=== PATIENT | male | born 1990 | race Caucasian/White ===

== ENCOUNTER 2016-04-21 12:07 | Emergency (ER) | payer OTHER ==
[2016-04-21 12:12] VITALS: BP 126/81; PULSE 92; TEMP 98; BMI 34.9
--- NOTE | 2016-04-21 12:34 | PDOC ---
History of Present Illness <Jairo Eugene - Last Filed: 04/21/16 12:31> - General History Source: Patient Exam Limitations: No Limitations - History of Present Illness Initial Comments: 04/21/16 12:39 Patient is a 25 year old male with no pmhx who presents to the ED with lightheadedness for a couple of weeks. Patient notes that he has been experiencing lightheadedness and SOB. Patient notes that when he walks up the stairs he reports labored breathing and lightheadedness. He also reports decreased PO intake. He denies any change in mood, sleeping schedule, no increased stress. He denies use of supplements or vitamins. <Melany Rivers - Last Filed: 04/21/16 12:40> - General Chief Complaint: Lightheaded Stated Complaint: SOB, LIGHTHEADED Time Seen by Provider: 04/21/16 12:23 Past History - Past Medical History Other medical history: NONE - Psycho/Social/Smoking Cessation Hx Anxiety: No Suicidal Ideation: No Smoking History: Never smoked Information on smoking cessation initiated: No Hx Alcohol Use: No Drug/Substance Use Hx: No Substance Use Type: None <Jairo Eugene - Last Filed: 04/21/16 12:31> <Melany Rivers - Last Filed: 04/21/16 12:40> - Past Medical History Allergies/Adverse Reactions: Allergies Allergy/AdvReac Type Severity Reaction Status Date / Time No Known Allergies Allergy Verified 04/21/16 12:09 Home Medications: Ambulatory Orders NK [No Known Home Medication] 10/08/15 Review of Systems - Review of Systems Able to Perform ROS?: Yes Comments:: 04/21/16 12:40 General: Absent: fever, chills Respiratory: +SOB Absent: cough GI: Absent: nausea, vomiting, diarrhea, constipation, abdominal pain : Absent: dysuria Neuro: +lightheadedness Absent: LOC, headache Psych: Absent: mood changes <Melany Rivers - Last Filed: 04/21/16 12:40> *Physical Exam - Vital Signs Last Vital Signs Temp Pulse Resp BP Pulse Ox 98.0 F 92 H 18 126/81 100 04/21/16 12:09 04/21/16 12:09 04/21/16 12:09 04/21/16 12:09 04/21/16 12:09 - Physical Exam General Appearance: Yes: Nourished, Appropriately Dressed. No: Apparent Distress HEENT: positive: EOMI, EDISON, Normal ENT Inspection Neck: positive: Supple. negative: Tender Respiratory/Chest: positive: Lungs Clear, Normal Breath Sounds. negative: Chest Tender, Respiratory Distress Cardiovascular: positive: Regular Rhythm, Regular Rate. negative: Murmur, Gallop/S3 Gastrointestinal/Abdominal: positive: Normal Bowel Sounds, Soft. negative: Tender Musculoskeletal: positive: Normal Inspection. negative: CVA Tenderness Extremity: positive: Normal Capillary Refill, Normal Inspection. negative: Pedal Edema, Other Neurologic: positive: sec reporting consultant II-XII NML intact, Fully Oriented, Alert, Normal Mood/ Affect, Normal Response, Motor Strength 5/5 <Jairo Eugene - Last Filed: 04/21/16 12:31> - Vital Signs Last Vital Signs Temp Pulse Resp BP Pulse Ox 98.0 F 92 H 18 126/81 100 04/21/16 12:09 04/21/16 12:09 04/21/16 12:09 04/21/16 12:09 04/21/16 12:09 <Melany Rivers - Last Filed: 04/21/16 12:40> *DC/Admit/Observation/Transfer <Jairo Eugene - Last Filed: 04/21/16 12:31> - Attestations Scribe Attestion: 04/21/16 12:40 Documentation prepared by ARMANDO Blanco, acting as medical technologist microbiology for Jairo Eugene MD/DO. <Melany Rivers - Last Filed: 04/21/16 12:40> Diagnosis at time of Disposition: Weakness - Discharge Dispostion Disposition: HOME Condition at time of disposition: Good - Referrals Referrals: Aramis Araiza [Primary Care Provider] - Call tomorrow - Patient Instructions Additional Instructions: THOUGH YOUR ISSUE DOES NOT SEEM TO BE LIFE-THREATENING, YOU SHOULD FOLLOW UP WITH YOUR PCP, PLEASE CALL YOUR DOCTOR TODAY FOR APPOINTMENT YOUR PHYSICAL EXAM DID NOT YIELD ANY ABNORMALITY TO WARRANT AN EMERGENCY INTERVENTION OR WORK UP
== END 2016-04-21 12:45 | disposition home or self-care (01) ==
LOC: JER 12:07
DX: R53.1 Weakness (principal)
CPT/HCPCS: 99282-25

== ENCOUNTER 2018-05-07 15:13 | Emergency (ER) | payer OTHER ==
[2018-05-07 15:30] VITALS: BMI 36.9
[2018-05-07] MEDS ORDERED: ADENOSINE 6 MG/2 ML VIAL IVPUSH ONE (15:46)
--- NOTE | 2018-05-07 15:59 | PDOC ---
History of Present Illness - General Chief Complaint: Irregular Heart Beat Stated Complaint: CHEST PAIN Time Seen by Provider: 05/07/18 15:37 History Source: Patient Exam Limitations: No Limitations - History of Present Illness Initial Comments: 05/07/18 15:54 27 yo M no significant medical history p/w sudden onset of fast heart rate. Patient was sitting in a royal shop while he suddenly felt palpitations and fast heart rate. He endorses daily random occurrence of tachycardia with high blood pressure, shortness of breath, but not associated with exertion. Denies any cardiac history in 1st degree relatives, chest pain, anxiety, abd pain, headache, dizziness. 05/07/18 17:14 Pt refused xanax, labs remarkable for elevated AST and ALT. Sent UA and urine tox. 05/07/18 18:22 All labs came back normal. Will discharge the patient once IVF finishes. Pt appear anxious and refuses anxiolytics. Past History - Past Medical History Allergies/Adverse Reactions: Allergies Allergy/AdvReac Type Severity Reaction Status Date / Time No Known Allergies Allergy Verified 05/07/18 15:27 Home Medications: Ambulatory Orders NK [No Known Home Medication] 10/08/15 COPD: No - Suicide/Smoking/Psychosocial Hx Smoking History: Never smoked Hx Alcohol Use: No Drug/Substance Use Hx: No Substance Use Type: None Review of Systems - Review of Systems Able to Perform ROS?: Yes Constitutional: No: Chills, Fever Respiratory: Yes: Shortness of Breath. No: Cough Cardiac (ROS): Yes: Palpitations, Chest Tightness. No: Chest Pain ABD/GI: No: Vomiting Neurological: No: Headache, Numbness *Physical Exam - Vital Signs Last Vital Signs Temp Pulse Resp BP Pulse Ox 98.2 F 130 H 22 H 121/90 05/07/18 15:27 05/07/18 15:27 05/07/18 15:27 05/07/18 15:27 - Physical Exam General Appearance: No: Apparent Distress Respiratory/Chest: positive: Normal Breath Sounds Cardiovascular: positive: Regular Rhythm, Regular Rate, S1, S2, Tachycardia. negative: Murmur Gastrointestinal/Abdominal: positive: Normal Bowel Sounds, Soft. negative: Tender Neurologic: positive: Fully Oriented, Alert Moderate Sedation - Procedure Monitoring Vital Signs: Procedure Monitoring Vital Signs Temperature 98.2 F 05/07/18 15:27 Pulse Rate 130 H 05/07/18 15:27 Respiratory Rate 22 H 05/07/18 15:27 Blood Pressure 121/90 05/07/18 15:27 O2 Sat by Pulse Oximetry (%) ED Treatment Course - LABORATORY CBC & Chemistry Diagram: 05/07/18 16:00 05/07/18 16:00 *DC/Admit/Observation/Transfer Diagnosis at time of Disposition: Sinus tachycardia - Discharge Dispostion Disposition: HOME Condition at time of disposition: Stable Decision to Admit order: No - Referrals Referrals: Jairo Bobo MD [Staff Physician] - Salomón Ruth MD [Staff Physician] - - Patient Instructions Printed Discharge Instructions: DI for Tachycardia Additional Instructions: You were seen and evaluated in [facility] Emergency Room today for fast heart rate aka tachycardia. All lab works including cardiac enzyme, chest x-ray, d-dimer are negative. 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 Bobo, see referral) once your insurance is activated. - Post Discharge Activity
[2018-05-07 16:36] LABS: BASO % 0.2 % (0-2.0); EOS % 0.5 % (0-4.5); HEMATOCRIT 47.6 % (35.4-49); HEMOGLOBIN 16.3 GM/dL (11.7-16.9); LYMPH % 11.8 % (8-40); MCH 31.1 pg (25.7-33.7); MCHC 34.2 g/dl (32.0-35.9); MEAN CELL VOLUME 90.8 fl (80-96); MEAN PLT VOLUME 7.3 fl (7.5-11.1); MONO % 7.3 % (3.8-10.2); NEUT % 80.2 % (42.8-82.8); PLATELET COUNT 283 K/MM3 (134-434); RBC 5.24 M/mm3 (4.00-5.60); RDW 12.9 % (11.9-15.9); WHITE BLOOD COUNT 9.9 K/mm3 (4.0-10.0)
--- NOTE | 2018-05-07 16:41 | PDOC ---
Attending Attestation - HPI HPI: 05/07/18 17:13 The patient is a 27 year old male with no past medical history here today for evaluation of shortness of breath. The patient reports that he has episodes of shortness of breath, tachycardia, and palpitations everyday recently. He reports no pain and states that his episodes are not affected by exertion. Patient denies headache, lightheadedness. Denies fever, chills. Denies chest pain. Denies nausea, vomiting, diarrhea, abdominal pain. Allergies: NKA PCP: Wisam Hargrove - Medical Decision Making 05/07/18 17:13 Documentation prepared by AMRANDO Carter, acting as medical facilities section director for Elissa Bender MD. <Chirag Rao - Last Filed: 05/07/18 17:13> - Physicial Exam PE: GENERAL: The patient is in no acute distress. HEAD: Normal with no signs of trauma. EYES: PERRLA, EOMI, sclera anicteric, conjunctiva clear. ENT: Ears normal, nares patent, oropharynx clear without exudates. Moist mucous membranes. NECK: Normal range of motion, supple without lymphadenopathy, JVD, or masses. LUNGS: Breath sounds equal, clear to auscultation bilaterally. No wheezes, and no crackles. HEART: +Tachycardic. Regular rhythm, normal S1 and S2 without murmur, rub or gallop. ABDOMEN: Soft, nontender, normoactive bowel sounds. No guarding, no rebound. No masses palpable. EXTREMITIES: Normal range of motion, no edema. No clubbing or cyanosis. No erythema, or tenderness. NEUROLOGICAL: Cranial nerves II through XII grossly intact. Normal speech. No focal neurological deficits. MUSCULOSKELETAL: Back non-tender to palpation, no CVA tenderness SKIN: Warm, Dry, normal turgor, no rashes or lesions noted. 05/07/18 18:03 - Medical Decision Making EXAM#: TYPE/EXAM: RESULT: [id number] RAD/CHEST X-RAY PORTABLE* Chest: Cough. Impression: No acute chest pathology. Reported By: Chris King MD 05/07/18 19:10 Documentation prepared by ARMANDO Reyna, acting as medical facilities section director for Elissa Bender MD. 05/07/18 20:05 <Nubia Urias - Last Filed: 05/07/18 20:05> - Resident Resident Name: Jairo Bazan - ED Attending Attestation I have performed the following: I have examined & evaluated the patient, The case was reviewed & discussed with the resident, I agree w/resident's findings & plan, Exceptions are as noted - Medical Decision Making 05/07/18 16:44 EKG - ST rate of 126 bpm, axis nml, intervals nml, Right axis deviation, no st elevation or depression 05/07/18 18:17 Mr. 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
[2018-05-07] MEDS ORDERED: SODIUM CHLORIDE 1,000 ML IV STA ×2 (16:45→17:36)
[2018-05-07] MEDS ORDERED: ALPRAZolam 0.25 MG TABLET PO ONE (16:45)
[2018-05-07 17:00] LABS: INR 1.13 (0.83-1.09); PROTHROMBIN TIME (PATIENT) 13.3 SEC (9.7-13.0)
[2018-05-07 17:03] LABS: ACTIVATED PTT 24.5 SECONDS (25.2-36.5)
[2018-05-07] MEDS ORDERED: ALPRAZolam 0.25 MG TABLET ONE (17:03)
[2018-05-07 17:09] LABS: ALBUMIN 4.4 g/dl (3.4-5.0); ALK PHOS 87 U/L (45-117); ANION GAP 8 MMOL/L (8-16); BILIRUBIN,TOTAL 0.6 mg/dL (0.2-1); BLOOD UREA NITROGEN 10 mg/dL (7-18); CALCIUM 9.4 mg/dL (8.5-10.1); CHLORIDE 104 mmol/L (98-107); CO2 24 mmol/L (21-32); CREATININE 0.8 mg/dL (0.55-1.3); GLUCOSE,RANDOM 103 mg/dL (74-106); MAGNESIUM 2.1 mg/dL (1.8-2.4); PHOSPHOROUS 3.3 mg/dL (2.5-4.9); SGOT/AST 58 U/L (15-37); SGPT/ALT 124 U/L (13-61); SODIUM 136 mmol/L (136-145); TOT PROT 7.9 g/dl (6.4-8.2)
[2018-05-07 17:51] LABS: URINE APPEARANCE CLEAR; URINE BILIRUBIN NEGATIVE (<2.0 mg/dL); URINE COLOR YELLOW; URINE GLUCOSE (UA) NEGATIVE (NEGATIVE); URINE KETONE TRACE (NEGATIVE); URINE LEUK ESTERASE NEGATIVE (NEGATIVE); URINE NITRITE NEGATIVE (NEGATIVE); URINE PROTEIN NEGATIVE (NEGATIVE); URINE UROBILINOGEN NEGATIVE mg/dL (0.2-1.0)
[2018-05-07 18:00] LABS: COCAINE, UR NEGATIVE ng/ml (CUTOFF=300); METHADONE, UR NEGATIVE ng/ml (CUTOFF=300); OPIATES, URI NEGATIVE ng/ml (CUTOFF=300); PHENCYCLIDINE,URINE NEGATIVE ng/ml (CUTOFF=25); URINE AMPHETAMINES NEGATIVE ng/ml (CUTOFF=500); URINE BARBITURATES NEGATIVE ng/ml (CUTOFF=200); URINE BENZODIAZEPINES NEGATIVE ng/ml (CUTOFF=200)
[2018-05-07 18:50] VITALS: BP 138/78; PULSE 98
[2018-05-07 19:17] VITALS: TEMP 98.4
--- NOTE | 2018-05-08 13:16 | EKG ---
Test Reason : Blood Pressure : / mmHG Vent. Rate : 126 BPM Atrial Rate : 126 BPM P-R Int : 150 ms QRS Dur : 090 ms QT Int : 304 ms P-R-T Axes : 036 108 002 degrees QTc Int : 440 ms SINUS TACHYCARDIA RIGHTWARD AXIS CANNOT RULE OUT ANTERIOR INFARCT , AGE UNDETERMINED ABNORMAL ECG NO PREVIOUS ECGS AVAILABLE Confirmed by MD JAY, RUFUS ([id number]) on 05/08/2018 1:15:46 PM Referred By: Confirmed By:RUFUS THOMPSON MD
== END 2018-05-07 19:18 | disposition home or self-care (01) ==
LOC: JER 15:13
PROC: 3E0337Z Introduction of Electrolytic and Water Balance Substance into Peripheral Vein, Percutaneous Approach (ICD-10-PCS; principal; 2018-05-07)
DX: R00.0 Tachycardia, unspecified (principal)
CPT/HCPCS: 36415; 71045-TC-FY; 80053; 80307; 81003; 82550; 82553; 83735; 84100; 84439; 84443; 84484; 85025; 85379; 85610; 85730; 93005; 93010; 96360; 96361; 99285-25; J7030

== ENCOUNTER 2018-05-08 21:29 | Emergency (ER) | payer OTHER ==
[2018-05-08 21:43] VITALS: TEMP 97.9; BMI 36.8
--- NOTE | 2018-05-08 22:32 | PDOC ---
History of Present Illness - General Chief Complaint: Shortness of Breath Stated Complaint: SHORT BREATH Time Seen by Provider: 05/08/18 21:59 History Source: Patient Exam Limitations: No Limitations - History of Present Illness Initial Comments: 05/08/18 22:26 Best Contact: PCP: None Pmhx: Meningitis @ 13 yo Pshx: 2012: Left shoulder arthroscopy Allergies:NKDA FH: Mother HTN (52yo); Unk father Social Hx: Cigarettes/ 0 Alcohol/ Social Drugs/denies 27-year-old male presents to the emergency department complaining of tachycardia with palpitations. Patient states although yesterday was not the first incident experiencing these symptoms, he felt short of breath while sitting in the royal's chair at approximately 1400 hrs. patient states the shortness of breath came on suddenly with tachycardia, shakes and appeared pale. EMS was activated and he was brought to the emergency department. Chest x- ray, blood work, UA, urine tox and IV fluid while in the emergency department. Everything appeared negative. Patient was discharged home felt better minimally. At approximately 2100 hrs. this evening while sitting on the couch talking to family members, patient states he walked from the living room to another wound to have a private conversation with his aunt via his cell phone, he felt shortness of breath and tachycardia again. Patient endorses he was not anxious, did not have an argument, was not upset. Patient had family members over along with some children running around that did not upset him. Patient furthermore says when he ambulates, he feels shortness of breath. When he speaks in full sentences sometimes he has to catch his breath along with getting up midway through his sleep to catch his breath. Patient states approximately 1-1/2 years ago, he felt his first episode of shortness of breath. Patient contributes it to his weight gain. Approximately 1- 1/2 years ago, patient weighed approximately 2:15 2-20 pounds. He started losing weight and felt a bit better/in the range of the 200 pounds. Since the end of last year, patient has been gaining weight and he is at approximately 250 pounds at this point. Patient states he has never seen a solids control technician or had any follow-up after experiencing these episodes. At this time, patient denies fever, chills, nausea/vomiting, dizziness, headache , lightheadedness, facial pains, rhinorrhea, nasal congestion, earache, sore throat, neck stiffness/pain, back pains, chest pain, abdominal pains, flank pains, urinary symptoms, extremity numbness or tingling sensation, weakness. Past History - Past Medical History Allergies/Adverse Reactions: Allergies Allergy/AdvReac Type Severity Reaction Status Date / Time No Known Allergies Allergy Verified 05/07/18 15:27 Home Medications: Ambulatory Orders NK [No Known Home Medication] 10/08/15 COPD: No - Suicide/Smoking/Psychosocial Hx Smoking History: Never smoked Hx Alcohol Use: No Drug/Substance Use Hx: No Substance Use Type: None Review of Systems - Review of Systems Able to Perform ROS?: Yes Comments:: 05/08/18 22:40 CONSTITUTIONAL: Absent: fever, chills, diaphoresis, generalized weakness, malaise, loss of appetite HEENT: Absent: rhinorrhea, nasal congestion, throat pain, throat swelling, difficulty swallowing, mouth swelling, ear pain, eye pain, visual Changes CARDIOVASCULAR: Absent: chest pain, loss of consciousness, palpitations, irregular heart rate, peripheral edema RESPIRATORY: +palpitations, sob Absent: cough, dyspnea with exertion, orthopnea, wheezing, stridor, hemoptysis GASTROINTESTINAL: Absent: abdominal pain, abdominal distension, nausea, vomiting, diarrhea, constipation, melena, hematochezia GENITOURINARY: Absent: dysuria, frequency, urgency, hesitancy, hematuria, flank pain, genital pain MUSCULOSKELETAL: Absent: myalgia, arthralgia, joint swelling SKIN: Absent: rash, itching, pallor HEMATOLOGIC/IMMUNOLOGIC: Absent: easy bleeding, easy bruising, lymphadenopathy, frequent infections ENDOCRINE: Absent: unexplained weight gain, unexplained weight loss, heat intolerance, cold intolerance NEUROLOGIC: Absent: headache, focal weakness or paresthesias, dizziness, unsteady gait, seizure, mental status changes, bladder or bowel incontinence PSYCHIATRIC: Absent: anxiety, depression, suicidal or homicidal ideation, hallucinations. Is the patient limited Maltese proficient: No *Physical Exam - Vital Signs Last Vital Signs Temp Pulse Resp BP Pulse Ox 97.9 F 99 H 20 159/97 99 05/08/18 21:36 05/08/18 21:36 05/08/18 21:36 05/08/18 21:36 05/08/18 21:36 - Physical Exam Comments: 05/08/18 22:40 GENERAL: Well developed, well nourished. Awake and alert. No acute distress. HEENT: Normocephalic, atraumatic. PERRLA, EOMI. No conjunctival pallor. Sclera are non- icteric. Moist mucous membranes. Oropharynx is clear. NECK: Supple. Full ROM. No JVD. Carotid pulses 2+ and symmetric, without bruits. No thyromegaly. No lymphadenopathy. CARDIOVASCULAR: Regular rate and rhythm. No murmurs, rubs, or gallops. Distal pulses are 2+ and symmetric. PULMONARY: No evidence of respiratory distress. Lungs clear to auscultation bilaterally. No wheezing, rales or rhonchi. ABDOMINAL: Soft. Non-tender. Non-distended. No rebound or guarding. No organomegaly. Normoactive bowel sounds. MUSCULOSKELETAL Normal range of motion at all joints. No bony deformities or tenderness. No CVA tenderness. EXTREMITIES: No cyanosis. No clubbing. No edema. No calf tenderness. SKIN: Warm and dry. Normal capillary refill. No rashes. No jaundice. NEUROLOGICAL: Alert, awake, appropriate. Cranial nerves 2-12 intact. No deficits to light touch and temperature in face, upper extremities and lower extremities. No motor deficits in the in face, upper extremities and lower extremities. Normoreflexic in the upper and lower extremities. Normal speech. Toes are down- going bilaterally. Gait is normal without ataxia. PSYCHIATRIC: Cooperative. Good eye contact. Appropriate mood and affect. Moderate Sedation - Procedure Monitoring Vital Signs: Procedure Monitoring Vital Signs Temperature 97.9 F 05/08/18 21:36 Pulse Rate 99 H 05/08/18 21:36 Respiratory Rate 20 05/08/18 21:36 Blood Pressure 159/97 05/08/18 21:36 O2 Sat by Pulse Oximetry (%) 99 05/08/18 21:36 ED Treatment Course - LABORATORY CBC & Chemistry Diagram: 05/08/18 23:06 05/08/18 23:06 - RADIOLOGY Radiograph Interpretation: 05/09/18 02:20 CTA: No evidence of pulmonary embolus, thoracic aortic aneurysm or dissection. Bovine aortic arch clear lungs *DC/Admit/Observation/Transfer Diagnosis at time of Disposition: SOBOE (shortness of breath on exertion), Tachycardia, Anxiety - Discharge Dispostion Disposition: HOME Condition at time of disposition: Stable Decision to Admit order: No - Referrals Referrals: Dimas Norman MD [Staff Physician] - Fabio Naylor MD, MD [Staff Physician] - Baldemar Hargrove MD [Staff Physician] - - Patient Instructions Printed Discharge Instructions: DI for Shortness of Breath, DI for Tachycardia , DI for Anxiety -- Adult Additional Instructions: As per hour in depth conversation in the emergency department, it is very important that you follow up with the solids control technician and a shop router on Thursday and Thursday. You need to take deep breaths Increase by mouth shortness of breath while exerting yourself, STOP. And relax You had a CTA of your chest with contrast this evening. The exam does not show a blood clot in your lung/thoracic aortic aneurysm Return back to the ER for severe/persistent or worsening symptoms - Post Discharge Activity Progress Note - Progress Note Progress Note: 2205hrs: pt states he's fine when sitting and resting Pt speaking in full sentences 2311hrs: Pt sleeping in the vertical ER waiting area/comfortable 0032hrs: Pt still sleeping/ he woke up and says he feels fine 0123hrs: Pt states he feels fine 0230hrs: Pt states he feels much better and wishes to be d/c
--- NOTE | 2018-05-08 22:51 | PDOC ---
*Physical Exam - Vital Signs Last Vital Signs Temp Pulse Resp BP Pulse Ox 97.9 F 99 H 20 159/97 99 05/08/18 21:36 05/08/18 21:36 05/08/18 21:36 05/08/18 21:36 05/08/18 21:36
[2018-05-08] MEDS ORDERED: SODIUM CHLORIDE 1,000 ML IV STA ×2 (22:53→23:13)
[2018-05-08] MEDS ORDERED: ALPRAZolam 0.25 MG TABLET PO ONE (23:14)
[2018-05-08 23:50] LABS: ALBUMIN 4.4 g/dl (3.4-5.0); ALK PHOS 87 U/L (45-117); ANION GAP 7 MMOL/L (8-16); BILIRUBIN,TOTAL 0.5 mg/dL (0.2-1); BLOOD UREA NITROGEN 9 mg/dL (7-18); CHLORIDE 103 mmol/L (98-107); CO2 28 mmol/L (21-32); GLUCOSE,RANDOM 100 mg/dL (74-106); POTASSIUM 4.5 mmol/L (3.5-5.1); SGOT/AST 57 U/L (15-37); SGPT/ALT 124 U/L (13-61); SODIUM 138 mmol/L (136-145)
[2018-05-09 00:22] LABS: BASO % 0.5 % (0-2.0); EOS % 1.2 % (0-4.5); HEMATOCRIT 45.5 % (35.4-49); HEMOGLOBIN 16.1 GM/dL (11.7-16.9); LYMPH % 27.8 % (8-40); MCH 32.1 pg (25.7-33.7); MCHC 35.4 g/dl (32.0-35.9); MEAN CELL VOLUME 90.6 fl (80-96); MEAN PLT VOLUME 7.4 fl (7.5-11.1); MONO % 11.6 % (3.8-10.2); NEUT % 58.9 % (42.8-82.8); PLATELET COUNT 272 K/MM3 (134-434); RBC 5.02 M/mm3 (4.00-5.60); RDW 13.3 % (11.9-15.9); WHITE BLOOD COUNT 6.9 K/mm3 (4.0-10.0)
[2018-05-09 02:45] VITALS: BP 142/84; PULSE 88
--- NOTE | 2018-05-09 11:08 | EKG ---
Test Reason : Blood Pressure : / mmHG Vent. Rate : 091 BPM Atrial Rate : 091 BPM P-R Int : 162 ms QRS Dur : 094 ms QT Int : 338 ms P-R-T Axes : 051 046 023 degrees QTc Int : 415 ms NORMAL SINUS RHYTHM NORMAL ECG WHEN COMPARED WITH ECG OF 07-MAY-2018 15:24, QRS AXIS SHIFTED LEFT NONSPECIFIC T WAVE ABNORMALITY NO LONGER EVIDENT IN LATERAL LEADS Confirmed by MD JAY, RUFUS ([id number]) on 05/09/2018 11:08:26 AM Referred By: Confirmed By:RUFUS THOMPSON MD
== END 2018-05-09 02:46 | disposition home or self-care (01) ==
LOC: JER 21:29
DX: F41.9 Anxiety disorder, unspecified (principal); R06.02 Shortness of breath; R00.2 Palpitations
CPT/HCPCS: 36415; 71275-TC; 80053; 82550; 82553; 84484; 85025; 93005; 93010; 99282-25; J7030

== ENCOUNTER 2018-06-07 01:58 | Emergency (ER) | payer OTHER ==
[2018-06-07 02:37] VITALS: TEMP 97.9; BMI 34.5
[2018-06-07] MEDS ORDERED: diphenhydrAMINE HCL 25 MG CAPSULE (FP) PO ONE ×2 (02:41→03:23)
--- NOTE | 2018-06-07 03:07 | PDOC ---
History of Present Illness - General Chief Complaint: Allergic Reaction Stated Complaint: MEDICATION REACTION Time Seen by Provider: 06/07/18 02:31 History Source: Patient Exam Limitations: No Limitations - History of Present Illness Initial Comments: 06/07/18 03:04 Patient is a [id number] male with history of anxiety here with complaints of "I am having a reaction from the medication". Patient states that he was on Xanax 0.25 mg and was weaned off it last dose was on Thursday. He was placed on sertraline, first dose on yesterday. States as soon as he took the medication he started to have symptoms of dizziness, nausea, could not sit still. States that he could not sleep, having hot flashes and he had numbness and tingling from his face and all over his body, dry mouth - she explains as dehydration. PMD: Dr. Laurent PMHX: as above PSOCHX: neg cig, drug, occ etoh ALL: NKDA GENERAL/CONSTITUTIONAL: No fever or chills. No weakness. No weight change. HEAD, EYES, EARS, NOSE AND THROAT: No change in vision. No ear pain or discharge. No sore throat. CARDIOVASCULAR: No chest pain or shortness of breath. RESPIRATORY: No cough, wheezing, or hemoptysis. GASTROINTESTINAL: No nausea, vomiting, diarrhea or constipation. No rectal bleeding. GENITOURINARY: No dysuria, frequency, or change in urination. MUSCULOSKELETAL: No joint or muscle swelling or pain. No neck or back pain. SKIN AND BREASTS: No rash or easy bruising. NEUROLOGIC: No headache, vertigo, loss of consciousness, or loss of sensation. PSYCHIATRIC: (+)depression or anxiety. ENDOCRINE: No increased thirst. No abnormal weight change. HEMATOLOGIC/LYMPHATIC: No anemia, easy bleeding, or history of blood clots. ALLERGIC/IMMUNOLOGIC: No hives or skin allergy. No latex allergy. GENERAL: The patient is awake, alert, and fully oriented, in mild distress. HEAD: Normal with no signs of trauma. EYES: Pupils equal, round and reactive to light, extraocular movements intact, sclera anicteric, conjunctiva clear. ENT: Ears normal, nares patent, oropharynx clear without exudates. Moist mucous membranes. NECK: Normal range of motion, supple without lymphadenopathy, JVD, or masses. LUNGS: Breath sounds equal, clear to auscultation bilaterally. No wheezes, and no crackles. HEART: tachycardic rhythm, normal S1 and S2 without murmur, rub. ABDOMEN: Soft, nontender, normoactive bowel sounds. No guarding, no rebound. No masses. EXTREMITIES: Normal range of motion, no edema. No clubbing or cyanosis. No cords, erythema, or tenderness. NEUROLOGICAL: Cranial nerves II through XII grossly intact. Normal speech, normal gait. PSYCH: Normal anxious, normal affect, pacing the floor SKIN: Warm, Dry, normal turgor, no rashes or lesions noted. Past History - Past Medical History Allergies/Adverse Reactions: Allergies Allergy/AdvReac Type Severity Reaction Status Date / Time No Known Allergies Allergy Verified 06/07/18 02:37 Home Medications: Ambulatory Orders Sertraline HCl 50 mg PO DAILY 06/07/18 COPD: No - Suicide/Smoking/Psychosocial Hx Smoking History: Never smoked Have you smoked in the past 12 months: No Information on smoking cessation initiated: No Hx Alcohol Use: No Drug/Substance Use Hx: No Substance Use Type: None *Physical Exam - Vital Signs Last Vital Signs Temp Pulse Resp BP Pulse Ox 97.9 F 115 H 21 H 131/93 97 06/07/18 01:58 06/07/18 01:58 06/07/18 01:58 06/07/18 01:58 06/07/18 01:58 Medical Decision Making - Medical Decision Making 06/07/18 03:04 Patient is a [id number] male with history of anxiety here with complaints of "I am having a reaction from the medication". Patient states that he was on Xanax 0.25 mg and was weaned off it last dose was on Thursday. He was placed on sertraline, first dose on yesterday. States as soon as he took the medication he started to have symptoms of dizziness, nausea, could not sit still. States that he could not sleep, having hot flashes and he had numbness and tingling from his face and all over his body, dry mouth - she explains as dehydration. Patient with symptoms of panic/anxiety. We'll give Benadryl 50 mg by mouth and reassess. 06/07/18 04:30 Selected Entries 06/07/18 03:59 Pulse Rate [ 90 Left] Respiratory 18 Rate Blood Pressure 134/91 [Left Arm] O2 Sat by Pulse 97 Oximetry (%) I discussed the physical exam findings, ancillary test results and final diagnoses with the patient. I answered all of the patient's questions. The patient was satisfied with the care received and felt comfortable with the discharge plan and treatment plan. The Patient agrees to follow up with the primary care physician within 24-72 hours. *DC/Admit/Observation/Transfer Diagnosis at time of Disposition: Anxiety - Discharge Dispostion Disposition: HOME Condition at time of disposition: Stable - Referrals Referrals: Donya Laurent MD [Primary Care Provider] - - Patient Instructions Printed Discharge Instructions: DI for Anxiety -- Adult Additional Instructions: Your Discharge Instructions: You must call primary care physician within 24 hours to arrange follow-up. Return to the Emergency Department with any new, persistent or worsening symptoms, for fever, chills, SOB, dizziness or any other concerning changes that may occur. Must follow-up with her psychiatrist for further evaluation and medication monitoring. - Post Discharge Activity
[2018-06-07 04:01] VITALS: BP 134/91; PULSE 90
== END 2018-06-07 04:24 | disposition home or self-care (01) ==
LOC: JER 01:58
DX: F41.0 Panic disorder [episodic paroxysmal anxiety] (principal); F41.9 Anxiety disorder, unspecified
CPT/HCPCS: 99282-25